=== PATIENT | female | born 1955 | race Caucasian/White ===

== ENCOUNTER 2023-12-01 11:02 | Outpatient (CLI) | payer BC | END 2023-12-01 11:03 | disposition home or self-care (01) | LOC: BICCT 11:02 | PROVIDERS: ATTEND Otolaryngology Otolaryngic Allergy | DX: H92.01 Otalgia, right ear (principal); J34.89 Other specified disorders of nose and nasal sinuses | CPT/HCPCS: 70487; 82565 ==